=== PATIENT | male | born 2005 | race Caucasian/White ===

== ENCOUNTER 2023-03-10 20:47 | Emergency (ER) | payer BC ==
[2023-03-10] MEDS ORDERED: ORPHENADRINE 60 MG/2 ML AMP (ED ONLY) IM ONE (22:15)
[2023-03-10] MEDS ORDERED: CYCL10TA25 PO (23:06)
--- NOTE | 2023-03-10 23:06 | ED Back Pain ---
General Chief Complaint: Back Problems Stated Complaint: LOWER BACK PAIN WILL NEED WHEELCHAIR Nursing Triage Note: PT AMB TO FT2 WITH CC OF BACK PAIN X1 HR. PT [facility]. 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 He has intermittent back pain that he associates due to his obesity. He denies previous back surgeries or chronic medications for his back. He denies any bowel or bladder incontinence or retention. Timing/Duration: 1-3 Hours Severity: Mild Pain/Injury Location: Back Radiation: Upper Legs Associated Symptoms: muscle spasms (Lumbar spine bilaterally); No numbness in legs/feet, No tingling in legs/feet, No sensory/motor loss; lower back pain; No loss of bladder control, No loss of bowel control (SUSAN DILLON) Allergies and Home Medications Allergies Coded Allergies: No Known Drug Allergies (Unverified , 03/10/23) Patient Home Medication List Home Medication List Reviewed: Yes (SUSAN DILLON) Cyclobenzaprine HCl (Cyclobenzaprine HCl) 10 Mg Tablet, 10 MG PO Q8H PRN for SPASMS Prescribed by: SUSAN DILLON on 03/10/23 2753 Review of Systems Constitutional: no symptoms reported, see HPI Musculoskeletal: see HPI, back pain (SUSAN DILLON) All Other Systems Reviewed Negative Unless Noted: Yes (SUSAN DILLON) Past Bjyyfcm-Yvirtc-Keuseg Hx Patient Social History Tobacco Use?: No Substance use?: No Alcohol Use?: No (SUSAN DILLON) Family Medical History Reviewed Nursing Family Hx (SUSAN DILLON) Physical Exam Vital Signs Vital Signs - First Documented 03/10/23 21:00 Pulse 88 Resp 18 B/P (MAP) 134/98 (110) Pulse Ox 96 O2 Delivery Room Air (MARIA LUZ LINO MD) Vital Signs Capillary Refill : Less Than 3 Seconds (SUSAN DILLON) Height, Weight, BMI Height: '" Weight: lbs. oz. kg; BMI Method: General Appearance: No Apparent Distress, WD/WN Cardiovascular: Regular Rate, Rhythm, No Murmur, Normal Peripheral Pulses Respiratory: Chest Non Tender, Lungs Clear, Normal Breath Sounds Back: Normal Inspection, No CVA Tenderness, Decreased Range of Motion, Muscle Spasm; No Vertebral Tenderness; Other (Power V/V L4-S1. Steady gait, able to r aise onto his toes and heels.) Extremity: Normal Capillary Refill, Normal Inspection, Normal Range of Motion Neurologic/Psychiatric: Alert, Oriented x3, No Motor/Sensory Deficits, Normal Mood/Affect (SUSAN DILLON) Progress/Results/Core Measures Results/Orders My Orders Orders - MARIA LUZ LINO MD Orphenadrine Inj (Ed Only) (Norflex Inje (03/10/23 22:15) (MARIA LUZ LINO MD) Medications Given in ED Current Medications Medications Dose Ordered Sig/Lorraine Route Start Time Stop Time Status Last Admin Dose Admin Orphenadrine Citrate 60 mg ONCE ONCE IM 03/10/23 22:15 03/10/23 22:16 DC 03/10/23 22:09 60 MG (MARIA LUZ LINO MD) Vital Signs/I&O 03/10/23 03/10/23 21:00 23:14 Pulse 88 88 Resp 18 18 B/P (MAP) 134/98 (110) 138/87 Pulse Ox 96 96 O2 Delivery Room Air Room Air (MARIA LUZ LINO MD) Blood Pressure Mean: 110 Progress Progress Note : Time: 21:00 Progress Note Patient assessed, Norflex 60 mg IM provided. Will reassess. 2215 patient reports improvement in symptoms after receiving the Norflex. Discharge instructions and return precautions reviewed. All questions answered (SUSAN DILLON) Departure Impression Primary Impression: Lumbar radiculopathy Additional Impressions: Back pain Qualified Codes: M54.42 - Lumbago with sciatica, left side; M54.41 - Lumbago with sciatica, right side Obesity Qualified Codes: E66.9 - Obesity, unspecified Disposition: 01 HOME, SELF-CARE Condition: Improved Departure-Patient Inst. Decision time for Depature: 20:45 (SUSAN DILLON) Referrals: [facility] [place]YSIC[place] (PCP) Primary Care Physician Patient Instructions: Low Back Pain (DC), Radiculopathy (DC) Add. Discharge Instructions: Alternate heat and ice to your low back. Take the Flexeril as prescribed for muscle spasms. Alternate between ibuprofen 800 mg and Tylenol 650 mg every 4 hours for pain. Follow-up at [facility] if symptoms are not improving or worsen. Return to the emergency department for new, urgent healthcare needs. All discharge instructions reviewed with patient and/or family. Voiced understanding. Scripts Cyclobenzaprine HCl (Cyclobenzaprine HCl) 10 Mg Tablet 10 MG PO Q8H PRN for SPASMS, #15 TAB 0 Refills Prov: SUSAN DILLON 03/10/23 ATTENDING PHYSICIAN NOTE: Nursing staff initially presented patient report to me prior to patient's examination. Options were discussed. There were no traumatic injuries suspected. Patient was offered Toradol and/or Norflex. Patient requested Norflex be given and it was ordered. Care was then assumed by Susan DILLON NP. I did not personally interview or examine this patient, and I was not otherwise directly involved in the decision making or delivery of care for this patient. (MARIA LUZ LINO MD) SUSAN DILLON Mar 10, 2023 23:06 MARIA LUZ LINO MD Mar 11, 2023 09:12
[2023-03-10] MEDS ORDERED: RX-CYCLOBENZAPRINE 10 MG (FLEXERIL) TAB PPK#3 PO STA (23:07)
[2023-03-10 23:14] VITALS: BP 138/87
== END 2023-03-10 23:14 | disposition home or self-care (01) ==
LOC: ER 20:53
DX: M54.16 Radiculopathy, lumbar region (principal); E66.9 Obesity, unspecified
CPT/HCPCS: 99281